=== PATIENT | male | born 1980 | race Two or more races ===

== ENCOUNTER 2020-06-01 11:26 | Outpatient (REF) | payer OTHER, SELFPAY ==
[2020-06-01 13:46] LABS: MANUAL DIFF FLAG NO
[2020-06-01 13:48] LABS: Basophils Absolute Auto 0.1 X10*3/uL (0.0-0.2); Basophils Percent Auto 0.4 % (0-2); Eosinophils Absolute Auto 0.1 X10*3/uL (0.0-0.4); Eosinophils Percent Auto 0.8 % (0-4); Hematocrit 49.9 % (42-52); Hemoglobin 16.5 g/dl (14.0-18.0); Imm Gran Abs Auto 0.04 X10*3/uL (0.00-0.03); Imm Gran Pct Auto 0.3 % (0.0-0.4); Lymphocytes Absolute Auto 3.1 X10*3/uL (1.2-4.9); Lymphocytes Percent Auto 24.7 % (20-40); Mean Corpuscular HGB Conc 33.1 g/dl (31.0-36.0); Mean Corpuscular Hemoglobin 27.4 pg (27.0-33.0); Mean Corpuscular Volume 82.9 fL (80-98); Monocytes Absolute Auto 0.7 X10*3/uL (0.1-1.2); Monocytes Percent Auto 5.5 % (2-11); Neutrophils Absolute Auto 8.6 X10*3/uL (2.0-8.3); Neutrophils Percent Auto 68.3 % (45-73); Platelet Count 464 X10*3/uL (160-400); Red Blood Count 6.02 X10*6/uL (4.60-5.80); Red Cell Distribution Width 13.2 % (11.0-16.0); White Blood Count 12.7 X10*3/uL (4.8-10.8)
[2020-06-01 14:42] LABS: Creatinine Urine 69.88 mg/dL; Microalbum/Creatinine Ratio Ur 55.8 ug/mg cr
[2020-06-01 14:49] LABS: Alanine Aminotransferase 13 U/L (0-40); Albumin Level 4.5 g/dL (3.5-5.0); Alkaline Phosphatase 120 U/L (39-117); Aspartate Amino Transferase 14 U/L (5-37); Blood Urea Nitrogen 16 mg/dL (9-16); Calcium 9.6 mg/dL (8.4-10.2); Cholesterol 246 mg/dL; Estimated Glomerular Filt Rate 49; HDL Cholesterol 34 mg/dL; Total Protein 8.5 g/dL (6.5-8.0); Triglycerides 724 mg/dL
[2020-06-01 14:56] LABS: Prostate Specific Antigen Scr 1.29 ng/mL (<0.05-4.0); TSH reflex Free T4 1.37 mIU/mL (0.32-4.0)
[2020-06-01 14:59] LABS: Anion Gap 22 (12-20); Carbon Dioxide 21 mmol/L (22-29); Chloride 93 mmol/L (96-108); Glucose Fasting 536 mg/dL (60-99); Potassium 5.2 mmol/l (3.3-5.1); Sodium 131 mmol/L (135-145)
== END 2020-06-01 11:27 | disposition home or self-care (01) ==
LOC: HO.WFDLDS 11:26
PROVIDERS: Visit Provider Family Medicine
DX: Z00.00 Encounter for general adult medical examination without abnormal findings (principal); E78.5 Hyperlipidemia, unspecified; I10 Essential (primary) hypertension; R79.89 Other specified abnormal findings of blood chemistry
CPT/HCPCS: 36415; 80053; 80061; 82043; 84153; 84443; 85025

== ENCOUNTER 2020-10-27 18:22 | Outpatient (REF) | payer OTHER, SELFPAY ==
[2020-10-27 18:52] LABS: Creatinine Urine 55.95 mg/dL; Microalbum/Creatinine Ratio Ur 21.4 ug/mg cr
== END 2020-10-27 18:23 | disposition home or self-care (01) ==
LOC: HO.LNP 18:22
PROVIDERS: Visit Provider Family Medicine
DX: E11.9 Type 2 diabetes mellitus without complications (principal); I10 Essential (primary) hypertension
CPT/HCPCS: 82043

== ENCOUNTER 2020-11-02 12:01 | Outpatient (REF) | payer OTHER, SELFPAY ==
[2020-11-02 13:13] LABS: Alanine Aminotransferase 25 U/L (0-40); Albumin Level 4.3 g/dL (3.5-5.0); Alkaline Phosphatase 86 U/L (39-117); Anion Gap 11 (12-20); Aspartate Amino Transferase 18 U/L (5-37); Bilirubin Total 0.8 mg/dL (0.0-1.0); Blood Urea Nitrogen 14 mg/dL (9-16); Carbon Dioxide 28 mmol/L (22-29); Chloride 100 mmol/L (96-108); Estimated Glomerular Filt Rate > 60; Glucose Fasting 321 mg/dL (60-99); Sodium 134 mmol/L (135-145); Total Protein 7.7 g/dL (6.5-8.0)
== END 2020-11-02 12:02 | disposition home or self-care (01) ==
LOC: HO.LAB 12:01
PROVIDERS: PCP Family Medicine; Visit Provider Family Medicine
DX: Z00.00 Encounter for general adult medical examination without abnormal findings (principal); E11.9 Type 2 diabetes mellitus without complications
CPT/HCPCS: 36415; 80053

== ENCOUNTER 2021-06-01 15:05 | Outpatient (REF) | payer OTHER, SELFPAY ==
[2021-06-01 15:46] LABS: Hematocrit 49.9 % (42.0-52.0); Hemoglobin 16.5 g/dl (14.0-18.0); Mean Corpuscular HGB Conc 33.1 g/dl (31.0-36.0); Mean Corpuscular Hemoglobin 27.4 pg (27.0-33.0); Mean Corpuscular Volume 82.9 fL (80.0-98.0); Mean Platelet Volume 9.2 fL (9.4-12.4); Platelet Count 441 X10*3/uL (160-400); Red Blood Count 6.02 X10*6/uL (4.60-5.80); Red Cell Distribution Width 12.7 % (11.0-16.0); White Blood Count 11.6 X10*3/uL (4.8-10.8)
[2021-06-01 15:53] LABS: Estimated Average Glucose 258 mg/dL; Hemoglobin A1c % 10.6 %
[2021-06-01 16:07] LABS: Alanine Aminotransferase 20 U/L (0-40); Albumin Level 4.3 g/dL (3.5-5.0); Alkaline Phosphatase 93 U/L (39-117); Anion Gap 15 (12-20); Aspartate Amino Transferase 14 U/L (5-37); Bilirubin Total 1.1 mg/dL (0.0-1.0); Blood Urea Nitrogen 12 mg/dL (9-16); Calcium 10.3 mg/dL (8.4-10.2); Carbon Dioxide 26 mmol/L (22-29); Chloride 101 mmol/L (96-108); Estimated Glomerular Filt Rate > 60; Glucose Random 375 mg/dL (60-115); Potassium 4.7 mmol/L (3.3-5.1); Sodium 137 mmol/L (135-145); Total Protein 8.1 g/dL (6.5-8.0)
[2021-06-01 16:23] LABS: TSH reflex Free T4 1.18 uIU/mL (0.32-4.0)
== END 2021-06-01 15:06 | disposition home or self-care (01) ==
LOC: HO.LAB 15:05
PROVIDERS: PCP Family Medicine; Visit Provider Hospitalist
DX: Z00.00 Encounter for general adult medical examination without abnormal findings (principal); E11.9 Type 2 diabetes mellitus without complications
CPT/HCPCS: 36415; 80053; 83036; 84443; 85027

== ENCOUNTER 2022-11-20 12:51 | Outpatient (REF) | payer OTHER, SELFPAY ==
[2022-11-20 15:00] LABS: Alanine Aminotransferase 16 U/L (0-40); Alkaline Phosphatase 90 U/L (39-117); Anion Gap 12 (12-20); Aspartate Amino Transferase 15 U/L (5-37); Bilirubin Total 0.7 mg/dL (0.0-1.0); Blood Urea Nitrogen 10 mg/dL (9-16); Calcium 9.5 mg/dL (8.4-10.2); Carbon Dioxide 27 mmol/L (22-29); Chloride 103 mmol/L (96-108); Cholesterol 233 mg/dL; Estimated Glomerular Filt Rate > 60; Glucose Fasting 267 mg/dL (60-99); HDL Cholesterol 41 mg/dL; LDL Cholesterol Calculated 154 mg/dl; Potassium 3.9 mmol/L (3.3-5.1); Sodium 138 mmol/L (135-145); Total Protein 7.8 g/dL (6.5-8.0); Triglycerides 192 mg/dL
== END 2022-11-20 12:52 | disposition home or self-care (01) ==
LOC: HO.LAB 12:51
PROVIDERS: PCP Hospitalist; Visit Provider Hospitalist
DX: Z00.00 Encounter for general adult medical examination without abnormal findings (principal); E66.9 Obesity, unspecified; R89.9 Unspecified abnormal finding in specimens from other organs, systems and tissues
CPT/HCPCS: 36415; 80053; 80061; 84443

== ENCOUNTER 2023-11-07 15:57 | Outpatient (AMB) | payer OTHER, SELFPAY ==
--- NOTE | 2023-11-07 15:59 | A.OFFPC_ITS ---
Vital Signs 11/07/23 16:00 Height 6 ft Weight 237 lb 4 oz BMI 32.2 BP 132/78 Blood Pressure Location Lt brachial Position Sitting Intake Visit Reasons: Reestablish care- needs insulin refilled. Intake Note: Patient is here to re establish care for insulin, and would like to talk about l ab work. Patient would like to talk about polycystic kidney disease because his is and she has traits. Patient is requesting insulin and med refills toaday. Allergies No Known Allergies Allergy (Verified 11/07/23 16:03) Tobacco use date assessed: 09/25/22 Dental Screening Dental Screen Date: 11/07/23 Did you have a dental visit in the last 12 months?: No Did you have a dental problem in the last 6 months where you did not have access to dental care?: No Was dental information given to patient?: Patient has dentist HPI Reestablish care- needs insulin refilled. HPI Details 43 y/o male presents to re-establish car e. Past medical history of diabetes, HLD, HTN. A1c today 11/07/23 10.2%. He is on insulin glargine 50 units, lispro 10 units. Blood pressure today 132/78. He is on lisinopril 10mg daily. [facility] Medical History Diabetes type 2, controlled Hyperlipidemia Left lower quadrant abdominal tenderness Renal failure Surgical History No pertinent past surgical history Family History Mother No problems noted. Father No problems noted. Social History Housing: Apartment Alcohol intake: current Alcohol intake frequency: holidays/special occasions only Patient Tobacco Use Status: Never used Tobacco e-Cigarette/Vaping Use: Never Used Second Hand Smoke Exposure: No Current occupational status: unemployed Cognitive needs: No Hearing needs: No Vision needs: No Questionnaire PHQ-9 Over the last 2 weeks, how often have you been bothered by any of the following problems? 1. Little interest or pleasure in doing things: not at all 2. Feeling down, depressed, or hopeless: not at all 3. Trouble falling or staying asleep, or sleeping too much: not at all 4. Feeling tired or having little energy: not at all 5. Poor appetite or overeating: not at all 6. Feeling bad about yourself - or that you are a failure or have let yourself or your family down: not at all 7. Trouble concentrating on things, such as reading the newspaper or watching television: not at all 8. Moving or speaking so slowly that other people could have noticed. Or the opposite - being so fidgety or restless that you have been moving around a lot more than usual: not at all 9. Thoughts that you would be better off or of hurting yourself in some way: not at all Total score: 0 Depression Screening Interpretation: Negative Depression Screening Done: Yes Source: Developed by Drs. Rafi Arcos, Whit Foley, Julián Hart and colleagues, with an educational saqib from [employer]. Thrive Questionnaire Date Thrive assessed: 11/07/23 I am a: Patient What is your living situation today?: I have a steady place to live Within the past 12 months, did the food you bought not last and you didn't have the money to get more?: Never true Within the past 12 months, did you worry whether your food would run out before you got money to buy more?: Never true Do you have trouble paying for medicines?: No Do you have trouble getting transportation to medical appointments?: No Do you have trouble paying your heating and electricity bill?: No Do you have trouble taking care of your child, family member or friend?: No Do you have trouble with day-to-day activities such as bathing, preparing meals, shopping, managing finances, etc.?: No Are you currently unemployed and looking for a job?: No Are you interested in more education?: No THRIVE Score: 0 AUDIT C Alcohol Use Questionnaire (AUDIT-C) 1. How often do you have a drink containing alcohol?: Monthly or less 2. How many drinks containing alcohol do you have on a typical day when you are drinking?: 1 or 2 3. How often do you have six or more drinks on one occasion?: Never Total Score: 1 MYESHA-7 AMB Questionnaire MYESHA-7 Date MYESHA - 7 assessed: 11/07/23 Feeling nervous, anxious, or on edge: 0 = Not at all Not being able to stop or control worryin = Not at all Worrying too much about different things: 0 = Not at all Trouble relaxin = Not at all Being so restless that it is hard to sit still: 0 = Not at all Becoming easily annoyed or irritable: 0 = Not at all Feeling afraid as if something awful might happen: 0 = Not at all Total MYESHA-7 score (0-4 normal; 5-9 mild; 10-14 moderate; 15-21 severe): 0 Source: Developed by Drs. Rafi Arcos, Whit Foley, Julián Hart and colleagues, with an educational saqib from [employer]. Review of Systems Const Denies chills, Denies fatigue, Denies fever(s), Denies headache(s) and Denies weakness ENT Denies dizziness and Denies headache(s) Card Denies dyspnea Resp Denies cough, Denies dyspnea, Denies wheezing and Denies other (shortness of breath) Musc Denies numbness and Denies tingling Neuro Denies dizziness, Denies headache(s), Denies numbness, Denies tingling and Denies weakness Psych Denies anxiety and Denies depression Endo Denies fatigue Aller/Immun Denies wheezing Physical exam (Primary Care) Vital Signs: Last Vital Signs BP 132/78 11/07/23 16:00 BMI result Body Mass Index 32.2 Tobacco/Smoking Status: Tobacco use Status Tobacco use date assessed 09/25/22 11/07/23 16:07 Patient Tobacco Use Status Never used Tobacco 11/07/23 16:07 e-Cigarette/Vaping Use Never Used 11/07/23 16:07 PHQ-9: PHQ-9 Score PHQ-9: Total score 0 11/07/23 16:25 Depression Screening Interpretation: Negative Thrive Assessment: Date of Thrive Assessment Date Thrive assessed 11/07/23 11/07/23 16:17 Const General: well developed; No acute distress Nutritional Appearance: well nourished Orientation/consciousness: patient oriented x3 HENMT Head: Yes normocephalic and Yes atraumatic Eyes General: appearance normal, both eyes and all related structures Pupils: Equal, round and reactive pupils present EOM: EOMs intact bilaterally Resp Effort & Inspection: normal respiratory effort Neuro General: patient oriented x3 and gait normal Cranial nerves: Yes Equal, round and reactive pupils present Psych Affect: normal affect Results AMB Hemoglobin A1c AMB Hemoglobin A1c 10.2 % Last Edit by Adore Kat CMA on 11/07/23 16:35 Assessment and Plan Assessment & Plan (1) Uncontrolled diabetes mellitus with hyperglycemia: Code(s): E11.65 - Type 2 diabetes mellitus with hyperglycemia (2) Essential hypertension: Code(s): I10 - Essential (primary) hypertension (3) Diabetes type 2, controlled: Code(s): E11.9 - Type 2 diabetes mellitus without complications Plan: Uncontrolled?diabetes.??A1c?goal?is?less?than?7.0% Changing?Lantus?to?35?units?b.i.d. He?is?unable?to?take?Humalog?at?breakfast?time?and?lunchtime?due?to?work. Will?give?him?glipizide?ER 10?mg?in?the?morning?and?encouraged?him?to?make?sure?he?has?something?to?eat?at? each?meal He?can?use?his?he?will?log?in?the?evening?before?dinner Will?follow-up?in?1?month Plan Patient's??has?polycystic?trait?according?to?her?provider?at?[facility]?a nd?they?recommended?that?he?also?get?testing?as?his??is?currently?. Starting?with?an?ultrasound Orders: Orders US renal BI Today E11.9 - Type 2 diabetes mellitus without complications, I10 - Essential (primary) hypertension AMB Hemoglobin A1c Today Z13.9 - Encounter for screening, unspecified Medications: New glipizide ER 10 mg PO QAM 90 days 90 tabs 2RF Changed From insulin glargine (Lantus Solostar U-100 Insulin) 50 units (0.5 mL) subcut DAILY 3 months 45 mL 3RF E11.9 - Type 2 diabetes mellitus without complications To insulin glargine (Lantus Solostar U-100 Insulin) 35 units (0.35 mL) subcut BID 3 months 63 mL 3RF E11.9 - Type 2 diabetes mellitus without complications Coding Level of Care Code Est Pt Level 4 (19320) Diagnoses Uncontrolled diabetes mellitus with hyperglycemia E11.65 Essential hypertension I10 Diabetes type 2, controlled E11.9
[2023-11-07 16:00] VITALS: BP 132/78; BMI 32.2
== END 2023-11-07 16:30 | disposition home or self-care (01) ==
PROVIDERS: PCP Family Medicine; Visit Provider Family Medicine
DX: E11.65 Type 2 diabetes mellitus with hyperglycemia (principal); I10 Essential (primary) hypertension
CPT/HCPCS: 83036; 99214

== ENCOUNTER 2024-01-03 08:06 | Outpatient (REF) | payer OTHER, SELFPAY ==
--- NOTE | ~2024-01-03 | US_ITS ---
EXAMINATION: ULTRASOUND RENAL WITH DOPPLER CLINICAL INFORMATION: Hypertension COMPARISON: None. TECHNIQUE: Real-time grayscale, color Doppler, and duplex Doppler evaluation of the kidneys and renal vasculature was performed. FINDINGS: RENAL MEASUREMENTS: Right: 13.9 x 6.2 x 5.5 cm (Sag x AP x TV) Left: 12.3 x 6.0 x 5.5 cm (Sag x AP x TV) The renal parenchyma appears normal. No hydronephrosis or nephrolithiasis. DOPPLER INTERROGATION: AORTA: Mid aorta: 117 cm/sec RIGHT MAIN RENAL ARTERY: Proximal: 155 cm/sec Mid: 75 cm/sec Distal: 110 cm/sec LEFT MAIN RENAL ARTERY: Proximal: 153 cm/sec Mid: 353 cm/sec Distal: 142 cm/sec RENAL-AORTIC RATIO (RAR): Right: Not calculated due to mid aortic velocity outside of range 40-100 cm/s making RAR inaccurate. Left: Not calculated due to mid aortic velocity outside of range 40-100 cm/s making RAR inaccurate. SEGMENTAL RESISTIVE INDICES: Right: 0.66-0.71 Left: 0.61-0.68 RENAL VEINS: Right: Patent with normal waveform. Left: Patent with normal waveform. US/US renal BI IMPRESSION: Elevated velocity in the mid left renal artery concerning for an underlying hemodynamically significant stenosis. Recommend further evaluation with CTA or MRA of the abdomen without and with intravenous contrast.
--- NOTE | ~2024-01-03 | US_ITS ---
EXAMINATION: ULTRASOUND RENAL WITH DOPPLER CLINICAL INFORMATION: Hypertension COMPARISON: None. TECHNIQUE: Real-time grayscale, color Doppler, and duplex Doppler evaluation of the kidneys and renal vasculature was performed. FINDINGS: RENAL MEASUREMENTS: Right: 13.9 x 6.2 x 5.5 cm (Sag x AP x TV) Left: 12.3 x 6.0 x 5.5 cm (Sag x AP x TV) The renal parenchyma appears normal. No hydronephrosis or nephrolithiasis. DOPPLER INTERROGATION: AORTA: Mid aorta: 117 cm/sec RIGHT MAIN RENAL ARTERY: Proximal: 155 cm/sec Mid: 75 cm/sec Distal: 110 cm/sec LEFT MAIN RENAL ARTERY: Proximal: 153 cm/sec Mid: 353 cm/sec Distal: 142 cm/sec RENAL-AORTIC RATIO (RAR): Right: Not calculated due to mid aortic velocity outside of range 40-100 cm/s making RAR inaccurate. Left: Not calculated due to mid aortic velocity outside of range 40-100 cm/s making RAR inaccurate. SEGMENTAL RESISTIVE INDICES: Right: 0.66-0.71 Left: 0.61-0.68 RENAL VEINS: Right: Patent with normal waveform. Left: Patent with normal waveform. US/US renal doppler IMPRESSION: Elevated velocity in the mid left renal artery concerning for an underlying hemodynamically significant stenosis. Recommend further evaluation with CTA or MRA of the abdomen without and with intravenous contrast.
== END 2024-01-03 08:07 | disposition home or self-care (01) ==
LOC: HO.US 08:06
PROVIDERS: PCP Family Medicine; Visit Provider Family Medicine
DX: I10 Essential (primary) hypertension (principal); E11.65 Type 2 diabetes mellitus with hyperglycemia
CPT/HCPCS: 76775; 93975

== ENCOUNTER 2024-02-25 14:51 | Outpatient (AMB) | payer OTHER, SELFPAY ==
[2024-02-25 14:46] VITALS: BP 136/62; PULSE 101; O2SAT 97; BMI 32.5
--- NOTE | 2024-02-25 14:46 | HO.NEPHOV ---
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 Accompanied by: Daughter Allergies No Known Allergies Allergy (Verified 02/25/24 14:53) Medication List - Last Reconciled 02/25/24 by Floyd Tang MD aspirin 81 mg PO DAILY blood sugar diagnostic (FreeStyle Lite Strips) DX: E11.9, test blood sugar 3 times a day AND PRN blood-glucose meter (FreeStyle Lite Meter kit) DX: E11.9, test blood sugar 4 times a day, duration 999 days insulin glargine (Lantus Solostar U-100 Insulin) 35 units (0.35 mL) subcut BID 3 months insulin lispro (Humalog KwikPen (U-100) Insulin) 10 units (0.1 mL) subcut TID 3 months insulin syringe-needle U-100 As directed lancets (FreeStyle Lancets) As directed lisinopril 10 mg PO DAILY pen needle, diabetic (BD Ultra-Fine Mini Pen Needle) DX: E11.9, to treat blood sugar 5 times a day, 90 days HPI Comments Details: Zakia is a pleasant 41-year-old man who has a history of hypertension and diabetes mellitus. He has been on lisinopril 10 mg for more than 5 years. He does not take lisinopril on a regular basis. During a routine evaluation he underwent a renal ultrasonogram/Doppler of renal arteries. Report was read as mild increase in velocity in the renal arteries and possible renal artery stenosis. However overall blood pressure has been well controlled. No significant elevation in blood pressure. In spite of skipping his lisinopril blood pressure has been in the acceptable range. He has no history of dyslipidemia. No history of smoking. No family history of arthrosclerosis. He has no other predisposing factors besides diabetes mellitus. Has a history of snoring at night. He has not undergone any sleep evaluation. His BMI is elevated at 32. He has lost about 10 lb based on the weight is recorded in the chart. [facility] Medical History Diabetes type 2, controlled Hyperlipidemia Left lower quadrant abdominal tenderness Renal failure Surgical History No pertinent past surgical history Family History Mother No problems noted. Father No problems noted. Social History Housing: Apartment Alcohol intake: current Alcohol intake frequency: holidays/special occasions only Patient Tobacco Use Status: Never used Tobacco e-Cigarette/Vaping Use: Never Used Second Hand Smoke Exposure: No Current occupational status: unemployed Cognitive needs: No Hearing needs: No Vision needs: No Review of Systems Const Denies fever(s) Card Denies chest pain Resp Denies cough and Denies hemoptysis GI Denies abdominal pain, Denies diarrhea and Denies nausea Musc Denies back pain Neuro Denies focal weakness Physical Exam Vital Signs: Last Vital Signs Pulse 101 H 02/25/24 14:46 BP 136/62 02/25/24 14:46 Pulse Ox 97 02/25/24 14:46 Oxygen Delivery Method Room Air 02/25/24 14:46 BMI result Body Mass Index 32.5 Results Reviewed Nephrology Results: Hgb 16.5 g/dl (14.0-18.0) 06/01/21 WBC 11.6 X10*3/uL (4.8-10.8) H 06/01/21 Plt Count 441 X10*3/uL (160-400) H 06/01/21 Sodium 138 mmol/L (135-145) 11/20/22 Potassium 3.9 mmol/L (3.3-5.1) 11/20/22 Chloride 103 mmol/L (96-108) 11/20/22 Carbon Dioxide 27 mmol/L (22-29) 11/20/22 BUN 10 mg/dL (9-16) 11/20/22 Creatinine 0.98 mg/dL (0.5-1.4) 11/20/22 Calcium 9.5 mg/dL (8.4-10.2) 11/20/22 Renal US 01/03/24 Assessment & Plan Assessment & Plan (1) Diabetes type 2, controlled: Code(s): E11.9 - Type 2 diabetes mellitus without complications Category: Medical (2) Essential hypertension: Code(s): I10 - Essential (primary) hypertension Category: Medical Plan Jacob has mild hypertension which seems to be well controlled. Obesity and possible obstructive sleep apnea could be a contributing factor. I do not believe he has significant renal artery stenosis. My recommendation would be to stay on low-sodium diet. I have discussed importance of weight loss. Should undergo a sleep evaluation for possible obstructive sleep apnea and and this needs to be corrected if it is present. For now I have encouraged him to stay on lisinopril. We will monitor blood pressure periodically and adjust the dose as needed. The blood pressure difficult to control or if there is any change renal function then I will consider with further workup I have reassured him and we will be happy to follow him along with you. Orders: Orders Complete Blood Count Auto Diff Today E11.9 - Type 2 diabetes mellitus without complications, I10 - Essential (primary) hypertension Comprehensive Met. Panel Today E11.9 - Type 2 diabetes mellitus without complications, I10 - Essential (primary) hypertension UA and rflx microscopic Today E11.9 - Type 2 diabetes mellitus without complications, I10 - Essential (primary) hypertension Total Protein Urine Random Today E11.9 - Type 2 diabetes mellitus without complications, I10 - Essential (primary) hypertension Referrals Sleep Medicine Referral I10 - Essential (primary) hypertension Coding Level of Care Code New Pt Level 4 (81128) Diagnoses Diabetes type 2, controlled E11.9 Essential hypertension I10
== END 2024-02-25 15:14 | disposition home or self-care (01) ==
PROVIDERS: PCP Family Medicine; Visit Provider Internal Medicine Hypertension Specialist
DX: E11.9 Type 2 diabetes mellitus without complications (principal); I10 Essential (primary) hypertension
CPT/HCPCS: 99204

== ENCOUNTER → 2024-02-25 14:51 | Outpatient (BNVA) | payer OTHER, SELFPAY | PROVIDERS: PCP Family Medicine; Visit Provider Internal Medicine Hypertension Specialist | DX: E11.9 Type 2 diabetes mellitus without complications (principal); I10 Essential (primary) hypertension | CPT/HCPCS: 99202 ==

== ENCOUNTER 2024-04-29 10:25 | Outpatient (REF) | payer OTHER, SELFPAY ==
[2024-04-29 10:55] LABS: MANUAL DIFF FLAG NO
[2024-04-29 11:17] LABS: Basophils Absolute Auto 0.1 X10*3/uL (0.0-0.2); Basophils Percent Auto 0.5 % (0-2); Eosinophils Absolute Auto 0.2 X10*3/uL (0.0-0.4); Eosinophils Percent Auto 1.6 % (0-4); Hematocrit 44.8 % (42.0-52.0); Hemoglobin 15.2 g/dl (14.0-18.0); Imm Gran Abs Auto 0.04 X10*3/uL (0.00-0.03); Imm Gran Pct Auto 0.4 % (0.0-0.4); Lymphocytes Absolute Auto 3.4 X10*3/uL (1.2-4.9); Lymphocytes Percent Auto 36.5 % (20-40); Mean Corpuscular HGB Conc 33.9 g/dl (31.0-36.0); Mean Corpuscular Volume 82.5 fL (80.0-98.0); Mean Platelet Volume 8.9 fL (9.4-12.4); Monocytes Absolute Auto 0.7 X10*3/uL (0.1-1.2); Monocytes Percent Auto 8.1 % (2-11); Neutrophils Absolute Auto 4.9 x10*3/uL (2.0-8.3); Neutrophils Percent Auto 52.9 % (45-73); Platelet Count 390 X10*3/uL (160-400); Red Blood Count 5.43 X10*6/uL (4.60-5.80); Red Cell Distribution Width 12.6 % (11.0-16.0); White Blood Count 9.2 X10*3/uL (4.8-10.8)
[2024-04-29 12:02] LABS: Alanine Aminotransferase 20 U/L (0-40); Albumin Level 3.9 g/dL (3.5-5.0); Alkaline Phosphatase 101 U/L (39-117); Anion Gap 10 (12-20); Aspartate Amino Transferase 19 U/L (5-37); Bilirubin Total 0.6 mg/dL (0.0-1.0); Blood Urea Nitrogen 10 mg/dL (9-16); Calcium 9.6 mg/dL (8.4-10.2); Carbon Dioxide 29 mmol/L (22-29); Chloride 102 mmol/L (96-108); Estimated Glomerular Filt Rate > 60; Glucose Random 141 mg/dL (60-115); Sodium 137 mmol/L (135-145); Total Protein 7.4 g/dL (6.5-8.0)
== END 2024-04-29 10:26 | disposition home or self-care (01) ==
LOC: HO.LAB 10:25
PROVIDERS: PCP Family Medicine; Visit Provider Internal Medicine Hypertension Specialist
DX: E11.9 Type 2 diabetes mellitus without complications (principal); I10 Essential (primary) hypertension
CPT/HCPCS: 36415; 80053; 85025

== ENCOUNTER 2024-06-15 09:29 | Outpatient (REF) | payer OTHER, SELFPAY ==
--- NOTE | ~2024-06-15 | XR_ITS ---
EXAMINATION: XR ANKLE 3 OR MORE VIEWS RIGHT HISTORY: S93.401A - Sprain of unspecified ligament of right ankle, initial encounter COMPARISON: There are no prior studies available for comparison. FINDINGS: Three views of the right ankle are submitted. Osseous mineralization is normal. There is no fracture or dislocation. Ankle mortise is maintained. 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 There is diffuse soft tissue swelling. XR/XR ankle RT min 3V IMPRESSION: 1. Diffuse soft tissue swelling. No evidence of fracture of the right ankle. 2. Severe degenerative change of the tarsometatarsal joints. Electronically signed by: Rafi Berger MD 06/17/2024 03:39 PM EST
== END 2024-06-15 09:30 | disposition home or self-care (01) ==
LOC: HO.HMGCX 09:29
PROVIDERS: PCP Family Medicine; Visit Provider Internal Medicine
DX: S93.401A Sprain of unspecified ligament of right ankle, initial encounter (principal); L03.115 Cellulitis of right lower limb
CPT/HCPCS: 73610; 99212

== ENCOUNTER 2024-06-15 09:29 | Outpatient (AMB) | payer OTHER, SELFPAY ==
--- NOTE | 2024-06-15 10:02 | MHC.OFFWIV ---
Intake Vital Signs 06/15/24 10:05 Weight 248 lb BP 128/80 Blood Pressure Location Rt brachial Position Sitting Pulse 78 Pulse Source Pulse Oximeter Pulse Oximetry (%) 98 Oxygen Delivery Method Room Air Intake Visit Reasons: EP-rt foot swollen Intake Note: Patient here for right foot swelling that has been present for about 1 month. He states he did trip over something a while back but no other known injuries. Patient Tobacco Use Status: Never used Tobacco Allergies No Known Allergies Allergy (Verified 06/15/24 11:02) Medication List - Last Reconciled 06/15/24 by Adan Allred MD aspirin 81 mg PO DAILY blood sugar diagnostic (FreeStyle Lite Strips) DX: E11.9, test blood sugar 3 times a day AND PRN blood-glucose meter (FreeStyle Lite Meter kit) DX: E11.9, test blood sugar 4 times a day, duration 999 days insulin glargine (Lantus Solostar U-100 Insulin) 35 units (0.35 mL) subcut BID 3 months insulin lispro (Humalog KwikPen (U-100) Insulin) 10 units (0.1 mL) subcut TID 3 months insulin syringe-needle U-100 As directed lancets (FreeStyle Lancets) As directed lisinopril 10 mg PO DAILY pen needle, diabetic (BD Ultra-Fine Mini Pen Needle) DX: E11.9, to treat blood sugar 5 times a day, 90 days Do you need a note to return to daycare/school/sports/work: Yes HPI EP-rt foot swollen HPI Details 43-year-old male presents to the office for a sick visit. Patient is complaining of swelling in the right foot for many months. He had scheduled an appointment to see his primary care provider but for unexpected reasons the appointment was canceled. The swelling is more distinct around the ankle and the heredia. He has no sensation on the sole part of his right foot. Patient is diabetic with very poor control of sugars. [facility] Medical History (Updated 06/15/24 @ 11:06 by Adan Allred MD) Cellulitis of right foot Renal failure Left lower quadrant abdominal tenderness Hyperlipidemia Diabetes type 2, controlled Surgical History No pertinent past surgical history Family History Mother No problems noted. Father No problems noted. Social History Housing: Apartment Alcohol intake: current Alcohol intake frequency: holidays/special occasions only Patient Tobacco Use Status: Never used Tobacco e-Cigarette/Vaping Use: Never Used Second Hand Smoke Exposure: No Current occupational status: unemployed Cognitive needs: No Hearing needs: No Vision needs: No Physical Exam Vital Signs: Last Vital Signs Pulse 78 06/15/24 10:05 BP 128/80 06/15/24 10:05 Pulse Ox 98 06/15/24 10:05 Oxygen Delivery Method Room Air 06/15/24 10:05 Extrem Other: Right foot: Swollen compared to the left foot. Pitting edema over the heredia up to the knee. No vascular or venous markings. Erythema over the dorsum of the foot. Assessment & Plan Assessment & Plan (1) Cellulitis of right foot: Code(s): L03.115 - Cellulitis of right lower limb Plan: X-ray images were personally reviewed by me. Antibiotics called in. Anti-inflammatories called in. Patient was advised to get his blood sugars under control and follow-up with his PCP. An e-mail was sent to the employment security officer requesting an early appointment with PCP. Orders: Orders XR ankle RT min 3V Today S93.401A - Sprain of unspecified ligament of right ankle, initial encounter Coding Level of Care Code Est Pt Level 4 (68964) Diagnoses Cellulitis of right foot L03.115
[2024-06-15 10:05] VITALS: BP 128/80; PULSE 78; O2SAT 98
== END 2024-06-15 11:32 | disposition home or self-care (01) ==
PROVIDERS: PCP Family Medicine; Visit Provider Internal Medicine
DX: L03.115 Cellulitis of right lower limb (principal)

== ENCOUNTER → 2024-06-15 10:45 | Outpatient (BNV) | payer OTHER, SELFPAY | PROVIDERS: PCP Family Medicine; Visit Provider Radiology Diagnostic Radiology | DX: M19.071 Primary osteoarthritis, right ankle and foot (principal) | CPT/HCPCS: 73610 ==

== ENCOUNTER 2024-06-22 13:45 | Outpatient (AMB) | payer OTHER, SELFPAY ==
--- NOTE | 2024-06-22 13:53 | MHC.PC.OV ---
Vital Signs 06/22/24 13:58 Height 6 ft Weight 250 lb 8 oz BMI 34.0 BP 147/71 H Blood Pressure Location Rt brachial Position Sitting Respiration 16 Pulse 99 Pulse Source Pulse Oximeter Temp 98.5 F Temp Source Oral Pulse Oximetry (%) 97 Oxygen Delivery Method Room Air Intake Visit Reasons: right foot issues needs ultrasound per dr proctor Intake Note: patient here c/o right foot issues would like an ultrasound Sales Communications Manager Required: No Allergies No Known Allergies Allergy (Verified 06/22/24 13:55) Tobacco use date assessed: 06/22/24 Dental Screening Dental Screen Date: 06/22/24 Did you have a dental visit in the last 12 months?: No Did you have a dental problem in the last 6 months where you did not have access to dental care?: No Was dental information given to patient?: No HPI right foot issues needs ultrasound per dr proctor HPI Details 43 y/o male presents to f/u R foot cellulitis. Had seen the walk in clinic 06/15/24 - xray had shown swelling R foot compared to L foot. Hx of uncontrolled diabetes and A1c today 10.1%. 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 Cellulitis of R foot seems to be improving. [facility] Medical History (Updated 06/22/24 @ 14:37 by Orville Reeder MD) Cellulitis of right foot Renal failure Left lower quadrant abdominal tenderness Hyperlipidemia Diabetes type 2, controlled Surgical History No pertinent past surgical history Family History Mother No problems noted. Father No problems noted. Social History Housing: Apartment Alcohol intake: current Alcohol intake frequency: holidays/special occasions only Patient Tobacco Use Status: Never used Tobacco e-Cigarette/Vaping Use: Never Used Second Hand Smoke Exposure: No Current occupational status: unemployed Cognitive needs: No Hearing needs: No Vision needs: No Questionnaire Thrive Questionnaire Date Thrive assessed: 06/21/24 I am a: Patient What is your living situation today?: I choose not to answer this question Within the past 12 months, did the food you bought not last and you didn't have the money to get more?: I choose not to answer this question Within the past 12 months, did you worry whether your food would run out before you got money to buy more?: I choose not to answer this question Do you have trouble paying for medicines?: No Do you have trouble getting transportation to medical appointments?: I choose not to answer this question Do you have trouble paying your heating and electricity bill?: I choose not to answer this question Do you have trouble taking care of your child, family member or friend?: I choose not to answer this question Do you have trouble with day-to-day activities such as bathing, preparing meals, shopping, managing finances, etc.?: I choose not to answer this question Are you currently unemployed and looking for a job?: I choose not to answer this question Are you interested in more education?: I choose not to answer this question Please select the resources that you would like help with: None Currently or been in a relationship where the following occur: I choose not to answer THRIVE Score: 0 AUDIT C Alcohol Use Questionnaire (AUDIT-C) 1. How often do you have a drink containing alcohol?: Never 2. How many drinks containing alcohol do you have on a typical day when you are drinking?: 1 or 2 3. How often do you have six or more drinks on one occasion?: Never Total Score: 0 MYESHA-7 AMB Questionnaire MYESHA-7 Date MYESHA - 7 assessed: 11/07/23 Feeling nervous, anxious, or on edge: 0 = Not at all Not being able to stop or control worryin = Not at all Worrying too much about different things: 0 = Not at all Trouble relaxin = Not at all Being so restless that it is hard to sit still: 0 = Not at all Becoming easily annoyed or irritable: 0 = Not at all Feeling afraid as if something awful might happen: 0 = Not at all Total MYESHA-7 score (0-4 normal; 5-9 mild; 10-14 moderate; 15-21 severe): 0 Source: Developed by Drs. Rafi Arcos, Whit Foley, Julián Hatr and colleagues, with an educational saqib from [employer]. Review of Systems Const Denies chills, Denies fatigue, Denies fever(s), Denies headache(s) and Denies weakness ENT Denies dizziness and Denies headache(s) Card Denies dyspnea Resp Denies cough, Denies dyspnea, Denies wheezing and Denies other (shortness of breath) Musc Denies numbness and Denies tingling Neuro Denies dizziness, Denies headache(s), Denies numbness, Denies tingling and Denies weakness Psych Denies anxiety and Denies depression Endo Denies fatigue Aller/Immun Denies wheezing Physical exam (Primary Care) Vital Signs: Last Vital Signs Temp 98.5 F 06/22/24 13:58 Pulse 99 06/22/24 13:58 Resp 16 06/22/24 13:58 BP 147/71 H 06/22/24 13:58 Pulse Ox 97 06/22/24 13:58 Oxygen Delivery Method Room Air 06/22/24 13:58 BMI result Body Mass Index 34.0 Tobacco/Smoking Status: Tobacco use Status Tobacco use date assessed 06/22/24 06/22/24 14:01 Patient Tobacco Use Status Never used Tobacco 06/22/24 13:54 e-Cigarette/Vaping Use Never Used 06/22/24 13:54 Thrive Assessment: Date of Thrive Assessment Date Thrive assessed 06/21/24 06/22/24 13:54 Currently or been in a relationship where the following occur: I choose not to answer Const General: well developed; No acute distress Nutritional Appearance: well nourished Orientation/consciousness: patient oriented x3 [facility] Head: Yes normocephalic and Yes atraumatic Eyes General: appearance normal, both eyes and all related structures Pupils: Equal, round and reactive pupils present EOM: EOMs intact bilaterally Resp Effort & Inspection: normal respiratory effort Auscultation: clear to auscultation bilaterally Cardio Rate: regular rate Rhythm: regular rhythm Heart sounds: S1 normal heart sound present, S2 normal heart sound present, no gallops, no murmurs and no rubs Neuro General: patient oriented x3 and gait normal Cranial nerves: Yes Equal, round and reactive pupils present Psych Affect: normal affect Coding Level of Care Code Est Pt Level 4 (05472) Diagnoses Cellulitis of right foot L03.115 Uncontrolled diabetes mellitus with hyperglycemia E11.65 Assessment & Plan Assessment & Plan (1) Cellulitis of right foot: Code(s): L03.115 - Cellulitis of right lower limb Category: Medical Plan: Cellulitis?of?right?foot?which?appears?to?be?improving?but?may?not?be?fully?resolved. Will?continue?Bactrim?for?another?7?days We?discussed?that?lower?extremity?and?especially?foot?infections?are?most?common?with?uncontrolled?diabetes - needs?to?work?at?control?of?his?diabetes.??See?below Refer?to?Podiatry (2) Uncontrolled diabetes mellitus with hyperglycemia: Code(s): E11.65 - Type 2 diabetes mellitus with hyperglycemia Category: Medical Plan: A1c?10.1%.??Still?uncontrolled?diabetes.??Goal?is?less?than?7% Patient?has?declined?referral?to?endocrinology Will?have?him?increase?Lantus?slightly?but?change?his?prescriptions?to?30?day?rather?than?90?days?at?his?request Will?try?Mounjaro Continue?prandial?insulin?as?prescribed Will?try?to?get?patient?a?Ariana?system?and?ask?the?nurse?navigator?to?performed?teaching. Orders: Referrals Podiatry Referral E11.9 - Type 2 diabetes mellitus without complications, L03.115 - Cellulitis of right lower limb, M21.40 - Flat foot [pes planus] (acquired), unspecified foot Nurse Navigator Referral E11.65 - Type 2 diabetes mellitus with hyperglycemia Medications: New flash glucose sensor ([employer] Ariaan 2 Sensor kit) To continuosly monitor glucose, change every 14 days, As directed, 28 days 2 ea 0RF E11.65 - Type 2 diabetes mellitus with hyperglycemia tirzepatide (Mounjaro) for 4 weeks 2.5 mg (0.5 mL) subcut QWEEK 90 days 6.5 mL 2RF flash glucose scanning reader ([employer] Ariana 2 Ernul) To continuosly monitor glucose, As directed, 999 days 1 ea 2RF E11.65 - Type 2 diabetes mellitus with hyperglycemia Changed From sulfamethoxazole-trimethoprim 800-160 mg (Bactrim DS) 1 tab PO BID 5 days 10 tabs 0RF To sulfamethoxazole-trimethoprim 800-160 mg (Bactrim DS) 1 tab PO BID 7 days 14 tabs 0RF From lisinopril 10 mg PO DAILY 90 tabs 3RF To lisinopril 20 mg PO DAILY 90 days 90 tabs 3RF From insulin glargine (Lantus Solostar U-100 Insulin) 35 units (0.35 mL) subcut BID 3 months 63 mL 3RF E11.9 - Type 2 diabetes mellitus without complications To insulin glargine (Lantus Solostar U-100 Insulin) 38 units (0.38 mL) subcut BID 30 days 24 mL 3RF E11.9 - Type 2 diabetes mellitus without complications
[2024-06-22 13:58] VITALS: BP 147/71; PULSE 99; RESP 16; TEMP 36.9; O2SAT 97; BMI 34.0
== END 2024-06-22 14:36 | disposition home or self-care (01) ==
PROVIDERS: PCP Family Medicine; Visit Provider Family Medicine
DX: L03.115 Cellulitis of right lower limb (principal); E11.65 Type 2 diabetes mellitus with hyperglycemia

== ENCOUNTER → 2024-06-22 13:45 | Outpatient (BNVA) | payer OTHER, SELFPAY | PROVIDERS: PCP Family Medicine; Visit Provider Family Medicine | DX: L03.115 Cellulitis of right lower limb (principal); E11.65 Type 2 diabetes mellitus with hyperglycemia | CPT/HCPCS: 99212 ==

== ENCOUNTER 2024-07-24 14:48 | Outpatient (AMB) | payer OTHER, SELFPAY ==
--- OUTSIDE RECORDS SUMMARY | 2024-07-24 14:49 | XMS_ITS | Clinical Summary ---
Author Organization [facility] Address [address] [place] [address] Phone Care Team Providers Care Prefabricated Houses Trimmer Name Role Phone Orville Reeder MD Primary Care Provider [phone] Allergies No known active allergies Medications insulin glargine (LANTUS) 100 unit/mL injection Inject 40 Units under the skin 2 (two) times a day. Active Medical History Medical History Date Comments Diabetes mellitus (CMS/[facility]) Hypertension Social History Tobacco Use Types Packs/Day Years Used Date Smoking Tobacco: Never Tobacco Cessation:Counseling Given: Not Answered Sex and Gender Information Value Date Recorded Sex Assigned at Not on file Legal Sex Male 10:16 AM EST Gender Identity Not on file Sexual Orientation Not on file Obstetrics History Last Filed Vital Signs Vital Sign Reading Time Taken Comments Blood Pressure 139/80 04/12/2024 10:41 AM EST Pulse 99 04/12/2024 10:41 AM EST Temperature 36.8 ??C (98.2 ??F) 04/12/2024 10:[address] Respiratory Rate 16 04/12/2024 10:41 AM EST Oxygen Saturation 100% 04/12/2024 10:41 AM EST Inhaled Oxygen Concentration - - Weight 109 kg (240 lb) 04/12/2024 10:41 AM EST Height 182.9 cm (6') 04/12/2024 10:41 AM EST Body Mass Index 32.55 04/12/2024 10:41 AM EST Plan of Treatment Health Maintenance Due Date Last Done Comments Diabetes: Annual GFR (Glomer ular Filtration Rate) 1978 Diabetes: Annual Foot Exam 1988 Diabetes: Annual Retina Eye Exam 1988 Hepatitis B Vaccines (1 of 3 - 19+ 3-dose series) 1997 DTaP,Tdap,and Td Vaccines (2 - Td or Tdap) 03/07/2020 03/07/2010 COVID-19 Vaccine (1 - 2023-2 5 season) 2024 Influenza Vaccine (#1) 2024 03/01/2011 Cholesterol Screening (Lipid Panel) 04/12/2024 Colorectal Cancer Screening: Colonoscopy 04/12/2024 Depression Screening 04/12/2024 Diabetes: Annual Urine Albumin-Creatinine Ratio (uACR) 04/12/2024 Diabetes: Blood Sugar Contro l Test (HGBA1C) 04/12/2024 HIV Screening 04/12/2024 Hepatitis C Screening 04/12/2024 Hypertension/CHF/CAD Annual BMP Blood Test 04/12/2024 Social Influencers of Health Screening 04/12/2024 Pneumococcal Vaccine: Pediat rics (0 to 5 Years) and At-Risk Patients (6 to 64 Years) Aged Out 03/07/2010 No longer eligi ble based on patient's age to complete this topic HIB Vaccines Aged Out No longer eligi ble based on patient's age to complete this topic HPV Vaccines Aged Out No longer eligi ble based on patient's age to complete this topic Hepatitis A Vaccines Aged Out No long er eligible based on patient's age to complete this topic IPV Vaccines Aged Out No longer eligi ble based on patient's age to complete this topic MMR Vaccines Aged Out No longer eligi ble based on patient's age to complete this topic Meningococcal ACWY Vaccine Aged Out N o longer eligible based on patient's age to complete this topic RSV Immunization Patients Un donis 20 months Aged Out No longer eligible b ased on patient's age to complete this topic Varicella Vaccines Aged Out No longer eligible based on patient's age to complete this topic Insurance [facility] PUBLIC PLANS Care Teams Prefabricated Houses Trimmer Relationship Specialty Start Date End Date Orville Reeder MD [address] [place] [address] PCP - General Family Medicine 04/12/24
--- NOTE | 2024-07-24 14:57 | A.OFFPC_ITS ---
Vital Signs 07/24/24 14:59 Height 6 ft Weight 246 lb 2 oz BMI 33.4 BP 140/70 H Blood Pressure Location Lt brachial Position Sitting Respiration 12 Pulse 114 H Pulse Source Pulse Oximeter Temp 98.7 F Temp Source Oral Pulse Oximetry (%) 98 Oxygen Delivery Method Room Air Intake Visit Reasons: fu right foot issues /ultrasound Intake Note: u/s review Allergies No Known Allergies Allergy (Verified 07/24/24 14:58) Tobacco use date assessed: 06/22/24 Dental Screening Dental Screen Date: 06/22/24 HPI fu right foot issues /ultrasound HPI Details 44 y/o male presents to f/u uncontrolled diabetes. Had increased Lantus and added Mounjaro. Had not been able to get Mounjaro. A1c still above 9% today. Had referred him to Podiatry for cellulitis of R foot. Had continued his bactrim. Blood pressure today 140/70, 114p. He is on lisinopril 20mg daily. Patient presents for preoperative clearance prior to Procedure: Date:? Surgeon: Anesthesia: Cardiac Hx: Pulmonary Hx: Prior Surgical Complications: None Prior Anesthesia Complications: None Coag issues: None Functional [place]: HPI Comments History of Present Illness Details Documentation assistance for Orville Reeder MD, was provided by Kenny Cobb,? Safety Risk Lead on 07/24/2024 at 3:04 PM EST. Yang, Dr. Reeder, have read, observed, and verified documentation. ?? [facility] Medical History (Updated 07/24/24 @ 15:19 by Kenny Cobb) Cellulitis of right foot Renal failure Left lower quadrant abdominal tenderness Hyperlipidemia Diabetes type 2, controlled Surgical History No pertinent past surgical history Family History Mother No problems noted. Father No problems noted. Social History Housing: Apartment Alcohol intake: current Alcohol intake frequency: holidays/special occasions only Patient Tobacco Use Status: Never used Tobacco e-Cigarette/Vaping Use: Never Used Second Hand Smoke Exposure: No Current occupational status: unemployed Cognitive needs: No Hearing needs: No Vision needs: No Questionnaire Thrive Questionnaire Date Thrive assessed: 06/21/24 I am a: Patient What is your living situation today?: I choose not to answer this question Within the past 12 months, did the food you bought not last and you didn't have the money to get more?: I choose not to answer this question Within the past 12 months, did you worry whether your food would run out before you got money to buy more?: I choose not to answer this question Do you have trouble paying for medicines?: No Do you have trouble getting transportation to medical appointments?: I choose not to answer this question Do you have trouble paying your heating and electricity bill?: I choose not to answer this question Do you have trouble taking care of your child, family member or friend?: I choose not to answer this question Do you have trouble with day-to-day activities such as bathing, preparing meals, shopping, managing finances, etc.?: I choose not to answer this question Are you currently unemployed and looking for a job?: I choose not to answer this question Are you interested in more education?: I choose not to answer this question Please select the resources that you would like help with: None Currently or been in a relationship where the following occur: I choose not to answer THRIVE Score: 0 MYESHA-7 AMB Questionnaire MYESHA-7 Date MYESHA - 7 assessed: 11/07/23 Source: Developed by Drs. Rafi Arcos, Whit Foley, Julián Hart and colleagues, with an educational saqib from [employer]. Review of Systems Const Denies chills, Denies fatigue, Denies fever(s), Denies headache(s) and Denies weakness ENT Denies dizziness and Denies headache(s) Card Denies dyspnea Resp Denies cough, Denies dyspnea, Denies wheezing and Denies other (shortness of breath) Musc Denies numbness and Denies tingling Neuro Denies dizziness, Denies headache(s), Denies numbness, Denies tingling and Denies weakness Psych Denies anxiety and Denies depression Endo Denies fatigue Aller/Immun Denies wheezing Physical exam (Primary Care) Vital Signs: Last Vital Signs Temp 98.7 F 07/24/24 14:59 Pulse 114 H 07/24/24 14:59 Resp 12 07/24/24 14:59 BP 140/70 H 07/24/24 14:59 Pulse Ox 98 07/24/24 14:59 Oxygen Delivery Method Room Air 07/24/24 14:59 BMI result Body Mass Index 33.4 Tobacco/Smoking Status: Tobacco use Status Tobacco use date assessed 06/22/24 07/24/24 15:03 Patient Tobacco Use Status Never used Tobacco 07/24/24 15:03 e-Cigarette/Vaping Use Never Used 07/24/24 15:03 Thrive Assessment: Date of Thrive Assessment Date Thrive assessed 06/21/24 07/24/24 15:03 Currently or been in a relationship where the following occur: I choose not to answer Const General: well developed; No acute distress Nutritional Appearance: well nourished Orientation/consciousness: patient oriented x3 HENMT Head: Yes normocephalic and Yes atraumatic Eyes General: appearance normal, both eyes and all related structures Pupils: Equal, round and reactive pupils present EOM: EOMs intact bilaterally Resp Effort & Inspection: normal respiratory effort Neuro General: patient oriented x3 and gait normal Cranial nerves: Yes Equal, round and reactive pupils present Psych Affect: normal affect Coding Level of Care Code Est Pt Level 4 (47135) Diagnoses Uncontrolled diabetes mellitus with hyperglycemia E11.65 Cellulitis of right foot L03.115 Pre-operative clearance Z01.818 Essential hypertension I10 Assessment & Plan Assessment & Plan (1) Uncontrolled diabetes mellitus with hyperglycemia: Code(s): E11.65 - Type 2 diabetes mellitus with hyperglycemia Category: Medical Plan: A1c?was?10.1%?at?last?visit. Still?above?9%?today.??St ill?essentially?uncontrolled?diabetes.??Goal?is?less?than?7.0% Increase?Lantus?to?40?units?b.i.d. Can?increase?his?Humalog?and?check?blood?sugars. Had?tried?to?add?Mounjaro?at?last?visit?but?he?was?not?able?to?afford?this Will?add?Jardiance (2) Cellulitis of right foot: Code(s): L03.115 - Cellulitis of right lower limb Category: Medical Plan: Cellulitis?has?resolved Still?has?collapsed?arch?and?some?swelling I?referred?to?Podiatry?knee?has?an?appointment Elevate?foot?and?use?cold?packs?after?work Follow-up?with?podiatry (3) Pre-operative clearance: Code(s): Z01.818 - Encounter for other preprocedural examination Category: Medical Plan: Patient?may?need?preoperative?clearance?prior?to?a?cataract?surgery No?history?of?cardiac?disease?and?his?cardiac?exam?is?within?normal?limits No?pulmonary?disease.??Pulmonary?exam?normal No?history?of?prior?complications?with?surgery?or?anesthesia No?history?of?clotting?bleeding?disorders Good?functional?reserve Currently?patient's blood?sugar?is?significantly?elevated. Would?recommend?unless?surgery?is?urgent?in?nature?should?have?blood?suga rs?controlled?to?at?least?8.0%?or?lower?prior?to?surgery.??We?are?working?on?thi s (4) Essential hypertension: Code(s): I10 - Essential (primary) hypertension Category: Medical Plan: Blood?pressure?is?little?elevated?and?his?heart?rate?is?high Adding?metoprolol Continue?lisinopril Medications: New metoprolol succinate ER 25 mg PO DAILY 90 days 90 tabs 3RF empagliflozin 10 mg PO QAM 90 days 90 tabs 3RF Changed From insulin glargine (Lantus Solostar U-100 Insulin) 38 units (0.38 mL) subcut BID 30 days 24 mL 3RF E11.9 - Type 2 diabetes mellitus without complications To insulin glargine (Lantus Solostar U-100 Insulin) 40 units (0.4 mL) subcut BID 30 days 24 mL 11RF E11.9 - Type 2 diabetes mellitus without complications From insulin lispro (Humalog KwikPen (U-100) Insulin) 10 units (0.1 mL) subcut TID 3 months 27 mL 0RF E11.9 - Type 2 diabetes mellitus without complications To insulin lispro (Humalog KwikPen (U-100) Insulin) 12 units (0.12 mL) subcut TID 3 months 33 mL 11RF E11.9 - Type 2 diabetes mellitus without complications Refilled lisinopril 20 mg PO DAILY 90 days 90 tabs 3RF Discontinued tirzepatide (Mounjaro) for 4 weeks Discontinued Reason: Doctor's Order 2.5 mg (0.5 mL) subcut QWEEK 90 days 6.5 mL 2RF
[2024-07-24 14:59] VITALS: BP 140/70; PULSE 114; RESP 12; TEMP 37.1; O2SAT 98; BMI 33.4
== END 2024-07-24 15:45 | disposition home or self-care (01) ==
PROVIDERS: PCP Family Medicine; Visit Provider Family Medicine
DX: E11.65 Type 2 diabetes mellitus with hyperglycemia (principal); L03.115 Cellulitis of right lower limb; Z01.818 Encounter for other preprocedural examination; I10 Essential (primary) hypertension

== ENCOUNTER → 2024-07-24 14:48 | Outpatient (BNVA) | payer OTHER, SELFPAY | PROVIDERS: PCP Family Medicine; Visit Provider Family Medicine | DX: Z01.818 Encounter for other preprocedural examination (principal); E11.65 Type 2 diabetes mellitus with hyperglycemia; I10 Essential (primary) hypertension; L03.115 Cellulitis of right lower limb | CPT/HCPCS: 83036; 99212 ==

== ENCOUNTER 2024-09-10 14:07 | Outpatient (AMB) | payer OTHER, SELFPAY ==
--- NOTE | 2024-09-10 14:22 | A.OFFPC_ITS ---
Vital Signs 09/10/24 14:26 Height 6 ft Weight 121 lb 4 oz BMI 16.4 BP 126/70 Blood Pressure Location Lt brachial Position Sitting Respiration 14 Pulse 96 Pulse Source Pulse Oximeter Temp 99.8 F Temp Source Oral Pulse Oximetry (%) 99 Oxygen Delivery Method Room Air Intake Visit Reasons: f/u diabetes, chronic conditions Intake Note: patient is scheduled to follow up for dm Tabulating Machine Mechanic Required: No Allergies No Known Allergies Allergy (Verified 09/10/24 14:24) Medication List - Last Reconciled 09/10/24 by Orville Reeder MD aspirin 81 mg PO DAILY blood sugar diagnostic (FreeStyle Lite Strips) DX: E11.9, test blood sugar 3 times a day AND PRN blood-glucose meter (FreeStyle Lite Meter kit) DX: E11.9, test blood sugar 4 times a day, duration 999 days empagliflozin 10 mg PO QAM 90 days flash glucose scanning reader ([employer]Style Ariana 2 Ralph) To continuosly monitor glucose, As directed, 999 days flash glucose sensor (FreeStyle Ariana 2 Sensor kit) To continuosly monitor glucose, change every 14 days, As directed, 28 days insulin glargine (Lantus Solostar U-100 Insulin) 40 units (0.4 mL) subcut BID 30 days insulin lispro (Humalog KwikPen (U-100) Insulin) 12 units (0.12 mL) subcut TID 3 months insulin syringe-needle U-100 As directed lancets (FreeStyle Lancets) As directed lisinopril 20 mg PO DAILY 90 days meloxicam 15 mg PO DAILY metoprolol succinate ER 25 mg PO DAILY 90 days pen needle, diabetic (BD Ultra-Fine Mini Pen Needle) DX: E11.9, to treat blood sugar 5 times a day, 90 days Tobacco use date assessed: 06/22/24 Dental Screening Dental Screen Date: 06/22/24 HPI f/u diabetes, chronic conditions HPI Details 44 y/o male presents to f/u diabetes, HT N, chronic conditions. Last A1c 07/24/24 above 9%. Had increased his insulin and added empagliflozin. A1c today 8.6%. He notes he has recorded blood sugars in the 90s. Will also ensure he has seen the police chief deputy as he has a significantly collapsed arch and recent superficial infection. Infection seems to have resolved after 2 rounds of antibiotics. Imaging did not show any evidence of osteomyelitis. Blood pressure today 126/70, 96p. He is on lisinopril 20mg, metoprolol 25mg daily. He is unsure if he is taking his metoprolol or not. [facility] Medical History (Updated 09/10/24 @ 14:49 by Kenny Cobb) Cellulitis of right foot Renal failure Left lower quadrant abdominal tenderness Hyperlipidemia Diabetes type 2, controlled Surgical History No pertinent past surgical history Family History Mother No problems noted. Father No problems noted. Social History Housing: Apartment Alcohol intake: current Alcohol intake frequency: holidays/special occasions only Patient Tobacco Use Status: Never used Tobacco e-Cigarette/Vaping Use: Never Used Second Hand Smoke Exposure: No Current occupational status: unemployed Cognitive needs: No Hearing needs: No Vision needs: No Questionnaire Thrive Questionnaire Date Thrive assessed: 06/21/24 I am a: Patient What is your living situation today?: I choose not to answer this question Within the past 12 months, did the food you bought not last and you didn't have the money to get more?: I choose not to answer this question Within the past 12 months, did you worry whether your food would run out before you got money to buy more?: I choose not to answer this question Do you have trouble paying for medicines?: No Do you have trouble getting transportation to medical appointments?: I choose not to answer this question Do you have trouble paying your heating and electricity bill?: I choose not to answer this question Do you have trouble taking care of your child, family member or friend?: I choose not to answer this question Do you have trouble with day-to-day activities such as bathing, preparing meals, shopping, managing finances, etc.?: I choose not to answer this question Are you currently unemployed and looking for a job?: I choose not to answer this question Are you interested in more education?: I choose not to answer this question Please select the resources that you would like help with: None Currently or been in a relationship where the following occur: I choose not to answer THRIVE Score: 0 MYESHA-7 AMB Questionnaire MYESHA-7 Date MYESHA - 7 assessed: 11/07/23 Source: Developed by Drs. Rafi Arcos, Whit Foley, Julián Hart and colleagues, with an educational saqib from [employer]. Review of Systems Const Denies chills, Denies fatigue, Denies fever(s), Denies headache(s) and Denies weakness ENT Denies dizziness and Denies headache(s) Card Denies dyspnea Resp Denies cough, Denies dyspnea, Denies wheezing and Denies other (shortness of breath) Musc Denies numbness and Denies tingling Neuro Denies dizziness, Denies headache(s), Denies numbness, Denies tingling and Denies weakness Psych Denies anxiety and Denies depression Endo Denies fatigue Aller/Immun Denies wheezing Physical exam (Primary Care) Vital Signs: Last Vital Signs Temp 99.8 F 09/10/24 14:26 Pulse 96 09/10/24 14:26 Resp 14 09/10/24 14:26 BP 126/70 09/10/24 14:26 Pulse Ox 99 09/10/24 14:26 Oxygen Delivery Method Room Air 09/10/24 14:26 BMI result Body Mass Index 16.4 Tobacco/Smoking Status: Tobacco use Status Tobacco use date assessed 06/22/24 09/10/24 14:24 Patient Tobacco Use Status Never used Tobacco 09/10/24 14:24 e-Cigarette/Vaping Use Never Used 09/10/24 14:24 Thrive Assessment: Date of Thrive Assessment Date Thrive assessed 06/21/24 09/10/24 14:24 Currently or been in a relationship where the following occur: I choose not to answer Const General: well developed; No acute distress Nutritional Appearance: well nourished Orientation/consciousness: patient oriented x3 HENMT Head: Yes normocephalic and Yes atraumatic Eyes General: appearance normal, both eyes and all related structures Pupils: Equal, round and reactive pupils present EOM: EOMs intact bilaterally Resp Effort & Inspection: normal respiratory effort Neuro General: patient oriented x3 and gait normal Cranial nerves: Yes Equal, round and reactive pupils present Psych Affect: normal affect Coding Level of Care Code Est Pt Level 4 (80161) Diagnoses Essential hypertension I10 Uncontrolled diabetes mellitus with hyperglycemia E11.65 Collapsed arches M21.40 Screening for colon cancer Z12.11 Assessment & Plan Assessment & Plan (1) Essential hypertension: Code(s): I10 - Essential (primary) hypertension Category: Medical Plan: Blood?pressure?now?well?controlled?on?lisinopril?and?metoprolol Continue?current?medication?regimen Goal?is?less?than?140/90 (2) Uncontrolled diabetes mellitus with hyperglycemia: Code(s): E11.65 - Type 2 diabetes mellitus with hyperglycemia Category: Medical Plan: A1c?is?gradually?improving?and?now?at?8.6%?after?increasing?Lantus?at?last?visit ?a?month?ago. Was?unable?to?get?Jardiance. He?will?continue?Lantus?as?prescribed, 40?units?b.i.d. He?will?continue Mounjaro?which?he?is?paying?for?on?pocket He?is?taking Lispro?3?times?a?day?with?meals and?administering?10?units?at?each?meal. He?will?increase?his?breakf ast?and?lunch?to?12?units each. Will?follow- up?in?a?month?as?we?are?hoping?to?get?A1c?lower?in?order?to?clear?him?for?eye?anderson rgery. (3) Collapsed arches: Code(s): M21.40 - Flat foot [pes planus] (acquired), unspecified foot Category: Medical Plan: Now?in?a?boot?and?followed?by?Podiatry Continue?boot?until?November?as?recommended?and?follow-up?with?podiatry. (4) Screening for colon cancer: Code(s): Z12.11 - Encounter for screening for malignant neoplasm of colon Category: Medical Plan: Referred?to?Gastroenterology Orders: Referrals Gastroenterology Referral Z12.11 - Encounter for screening for malignant neoplasm of colon Medications: Refilled tirzepatide (Mounjaro) for 4 weeks 2.5 mg (0.5 mL) subcut QWEEK 6.5 mL 2RF 90 days Discontinued empagliflozin Discontinued Reason: Doctor's Order 10 mg PO QAM 90 days 90 tabs 3RF
[2024-09-10 14:26] VITALS: BP 126/70; PULSE 96; RESP 14; TEMP 37.7; O2SAT 99; BMI 16.4
--- OUTSIDE RECORDS SUMMARY | 2024-09-10 15:36 | XMS_ITS | Clinical Summary ---
Author Organization [facility] Address [address] [place] [address] Phone Care Team Providers Care Store Manager Name Role Phone Orville Reeder MD Primary Care Provider [phone] Allergies No known active allergies Medications insulin glargine (LANTUS) 100 unit/mL injection Inject 40 Units under the skin 2 (two) times a day. Active Medical History Medical History Date Comments Diabetes mellitus (CMS/HCC) Hypertension Social History Tobacco Use Types Packs/Day [...] patient's age to complete this topic Meningococcal B Vacine Aged Out No lo nger eligible based on patient's age to complete this topic RSV Immunization Patients Un donis 20 months Aged Out No longer eligible b ased on patient's age to complete this topic Varicella Vaccines Aged Out No longer eligible based on patient's age to complete this topic Insurance [facility] PUBLIC PLANS Care Teams Store Manager Relationship Specialty Start Date End Date Orville Reeder MD [address] [place] [address] PCP - General Family Medicine 04/12/24
== END 2024-09-10 14:51 | disposition home or self-care (01) ==
LOC: HO.HMCFM 14:08
PROVIDERS: PCP Family Medicine; Visit Provider Family Medicine
DX: I10 Essential (primary) hypertension (principal); E11.65 Type 2 diabetes mellitus with hyperglycemia; M21.40 Flat foot [pes planus] (acquired), unspecified foot; Z12.11 Encounter for screening for malignant neoplasm of colon

== ENCOUNTER → 2024-09-10 14:07 | Outpatient (BNVA) | payer OTHER, SELFPAY | PROVIDERS: PCP Family Medicine; Visit Provider Family Medicine | DX: I10 Essential (primary) hypertension (principal); M21.40 Flat foot [pes planus] (acquired), unspecified foot; E11.65 Type 2 diabetes mellitus with hyperglycemia | CPT/HCPCS: 83036; 99212 ==

== ENCOUNTER 2024-09-12 12:21 | Outpatient (AMB) | payer OTHER, SELFPAY ==
--- OUTSIDE RECORDS SUMMARY | 2024-09-12 12:23 | XMS_ITS | Clinical Summary ---
Author Organization [facility] Address [address] [place] [address] Phone Care Team Providers Care Newborn Photographer Name Role Phone Orville Reeder MD Primary Care Provider [phone] Allergies No known active allergies Medications insulin glargine (LANTUS) 100 unit/mL injection Inject 40 Units under the skin 2 (two) times a day. Active Medical History Medical History Date Comments Diabetes mellitus (CMS/[facility]) Hypertension Social History Tobacco Use [...] patient's age to complete this topic Insurance [facility] PUBLIC PLANS Care Teams Newborn Photographer Relationship Specialty Start Date End Date Orville Reeder MD [address] [place] [address] PCP - General Family Medicine 04/12/24
[2024-09-12 12:25] VITALS: BP 136/80; PULSE 93; TEMP 36.8; O2SAT 98
--- NOTE | 2024-09-12 12:25 | AM.OFFWIN_ITS ---
Intake Vital Signs 09/12/24 12:25 Height 6 ft BP 136/80 Blood Pressure Location Lt brachial Position Sitting Pulse 93 Pulse Source Pulse Oximeter Temp 98.2 F Temp Source Oral Pulse Oximetry (%) 98 Oxygen Delivery Method Room Air Intake Visit Reasons: EP-Nose pain (inside) Patient Tobacco Use Status: Never used Tobacco Allergies No Known Allergies Allergy (Verified 09/12/24 12:43) Medication List - Last Reconciled 09/12/24 by Aneta Maynard [facility]- aspirin 81 mg PO DAILY blood sugar diagnostic (FreeStyle Lite Strips) DX: E11.9, test blood sugar 3 times a day AND PRN blood-glucose meter (FreeStyle Lite Meter kit) DX: E11.9, test blood sugar 4 times a day, duration 999 days flash glucose scanning reader (FreeStyle Ariana 2 Marana) To continuosly monitor glucose, As directed, 999 days flash glucose sensor (FreeStyle Ariana 2 Sensor kit) To continuosly monitor glucose, change every 14 days, As directed, 28 days insulin glargine (Lantus Solostar U-100 Insulin) 40 units (0.4 mL) subcut BID 30 days insulin lispro (Humalog KwikPen (U-100) Insulin) 12 units (0.12 mL) subcut TID 3 months insulin syringe-needle U-100 As directed lancets (FreeStyle Lancets) As directed lisinopril 20 mg PO DAILY 90 days meloxicam 15 mg PO DAILY metoprolol succinate ER 25 mg PO DAILY 90 days pen needle, diabetic (BD Ultra-Fine Mini Pen Needle) DX: E11.9, to treat blood sugar 5 times a day, 90 days tirzepatide (Mounjaro) 2.5 mg (0.5 mL) subcut QWEEK 90 days Do you need a note to return to daycare/school/sports/work: No HPI HPI Comments History of Present Illness Details History - The patient is a 44-year-old male pres enting with nasal pain. - Pain began approximately 5 days ago an d is localized to the right side of the nose. - He recently cut nasal hair, possibly i nciting the issue, and noted redness in the region. - Minor bleeding was observed - The patient notes prior episodes of na gisela congestion but no use of nasal medications. Denies fever, chills, loss of sense of smell, trauma to the nose other than as listed above, sore throat. Physical Exam General: Awake, alert. No apparent distress Eyes: Sclera and conjunctiva clear bilaterally Nose: Nares patent, scabbed ulcer like area noted inside R nares, turbinates erythematous, L nares clear, turbinates erythematous, no sinus tenderness w/ palpation, no epitaxis On the bridge of his nose, the skin is pink. Tender to touch but unsure if the pain is coming from inside the nose or truly on the outside. Discussion Notes I discussed with the patient the likely diagnosis of trauma potentially caused by recent nasal hair trimming. I explained the risk of infection due to the sensitive nature of nasal tissues and advised on appropriate topical treatment. The treatment plan involves applying an antibiotic cream, emphasizing the importance of using a fingertip rather than Q-tips to apply the cream twice daily for seven days to avoid further trauma. I addressed the need for hygiene concerning any instruments used for nasal care. Follow-up was recommended if symptoms worsen or do not resolve, stressing the importance of returning if necessary. Avoidance of nasal hair trimming in the near future was also advised. Patient Instructions - Apply the antibiotic cream inside your nose and on the red area twice a day for seven days. - Make sure to use your fingertip instea d of a Q-tip to apply the cream. - Avoid trimming nasal hair until the sy mptoms improve. - Maintain hygiene with any instruments used for nasal care. - If your symptoms worsen or do not get better, come back to see us. Consent Patient was informed and verbally consented to the use of an ambient scribe for clinic note documentation during this visit. [facility] Medical History (Updated 09/10/24 @ 14:49 by Kenny Cobb) Cellulitis of right foot Diabetes type 2, controlled Hyperlipidemia Left lower quadrant abdominal tenderness Renal failure Surgical History No pertinent past surgical history Family History Mother No problems noted. Father No problems noted. Social History Housing: Apartment Alcohol intake: current Alcohol intake frequency: holidays/special occasions only Patient Tobacco Use Status: Never used Tobacco e-Cigarette/Vaping Use: Never Used Second Hand Smoke Exposure: No Current occupational status: unemployed Cognitive needs: No Hearing needs: No Vision needs: No Physical Exam Vital Signs: Last Vital Signs Temp 98.2 F 09/12/24 12:25 Pulse 93 09/12/24 12:25 BP 136/80 09/12/24 12:25 Pulse Ox 98 09/12/24 12:25 Oxygen Delivery Method Room Air 09/12/24 12:25 Assessment & Plan Assessment & Plan (1) Folliculitis nares perforans: Code(s): L73.8 - Other specified follicular disorders Plan . Medications: New mupirocin 2% 1 appl topical BID 7 days 15 grams 0RF Coding Level of Care Code Est Pt Level 3 (60270) Diagnoses Folliculitis nares perforans L73.8
== END 2024-09-12 12:52 | disposition home or self-care (01) ==
LOC: HO.HMCWIC 12:21
PROVIDERS: PCP Family Medicine; Visit Provider Nurse Practitioner Family
DX: L73.8 Other specified follicular disorders (principal)

== ENCOUNTER → 2024-09-12 12:21 | Outpatient (BNVA) | payer OTHER, SELFPAY | PROVIDERS: PCP Family Medicine; Visit Provider Nurse Practitioner Family | DX: L73.8 Other specified follicular disorders (principal) | CPT/HCPCS: 99212 ==

== ENCOUNTER 2024-09-23 09:25 | Outpatient (REF) | payer OTHER, SELFPAY ==
--- NOTE | ~2024-09-23 | XR_ITS ---
EXAMINATION: XR FOOT 3 OR MORE VIEWS RIGHT HISTORY: CHARCOT'S NEUROPATHY, RIGHT FOOT COMPARISON: There are no prior studies available for comparison. FINDINGS: Three views of the right foot are submitted. Osseous mineralization is normal. There is severe degenerative change of the tarsometatarsal joints with multiple erosions, osteophyte formation, and some subchondral cyst formation. There is lateral subluxation of the 2nd through 5th metatarsals with respect to the tarsal bones, and widening of the interspace between the 1st and 2nd metatarsal bones. These findings are compatible with Lisfranc ligament disruption. There is no fracture or dislocation. There is diffuse soft tissue swelling. XR/XR foot RT min 3V IMPRESSION: Severe degenerative changes of the tarsometatarsal joints with findings consistent with Lisfranc ligament disruption. The constellation of findings is compatible with the given history of Charcot neuropathy. Electronically signed by: Rafi Berger MD 09/24/2024 07:54 AM EDT
--- OUTSIDE RECORDS SUMMARY | 2024-09-23 10:21 | XMS_ITS | Clinical Summary ---
Author Organization [facility] Address [address] [place] [address] Phone Care Team Providers Care Contour Sander Name Role Phone Orville Reeder MD Primary Care Provider [phone] Allergies No known active allergies Medications insulin glargine (LANTUS) 100 unit/mL injection Inject 40 Units under the skin 2 (two) times a day. Active Medical History Medical History Date Comments Diabetes mellitus (CMS/HCC V24, CMS/[facility] V28) Hypertension Social History Tobacco Use Types Packs/Day [...] Vaccine (1 - 2023-2 5 season) 2024 Cholesterol Screening (Lipid Panel) 04/12/2024 Colorectal Cancer Screening: Colonoscopy 04/12/2024 Depression Screening 04/12/2024 Diabetes: Annual Urine Albumin-Creatinine Ratio (uACR) 04/12/2024 Diabetes: Blood Sugar Contro l Test (HGBA1C) 04/12/2024 HIV Screening 04/12/2024 Hepatitis C Screening 04/12/2024 Hypertension/CHF/CAD Annual BMP Blood Test 04/12/2024 Social Influencers of Health Screening 04/12/2024 Influenza Vaccine (Season Ended) 2025 03/01/20 11 Pneumococcal Vaccine: Pediat rics (0 to 5 [...] age to complete this topic Meningococcal B Vaccine Aged Out No l onger eligible based on patient's age to complete this topic RSV Immunization Patients Un donis 20 months Aged Out No longer eligible b ased on patient's age to complete this topic Varicella Vaccines Aged Out No longer eligible based on patient's age to complete this topic Insurance [facility] PLANS Care Teams Contour Sander Relationship Specialty Start Date End Date Orville Reeder MD [address] [facility] [place] [address] PCP - General Family Medicine 04/12/24
== END 2024-09-23 09:26 | disposition home or self-care (01) ==
LOC: HO.HMGCX 09:25
PROVIDERS: PCP Family Medicine; Visit Provider Podiatrist
DX: M14.671 Charcot's joint, right ankle and foot (principal)
CPT/HCPCS: 73630

== ENCOUNTER → 2024-09-23 09:33 | Outpatient (BNV) | payer OTHER, SELFPAY | PROVIDERS: PCP Family Medicine; Visit Provider Radiology Diagnostic Radiology | DX: S93.324A Dislocation of tarsometatarsal joint of right foot, initial encounter (principal); M14.671 Charcot's joint, right ankle and foot | CPT/HCPCS: 73630 ==

== ENCOUNTER 2024-09-24 10:03 | Outpatient (REF) | payer OTHER, SELFPAY ==
--- OUTSIDE RECORDS SUMMARY | 2024-09-24 11:49 | XMS_ITS | Clinical Summary ---
Author Organization [facility] Address [address] [place] [address] Phone Care Team Providers Care Termite Inspector Name Role Phone Orville Reeder MD Primary Care Provider [phone] Allergies No known active allergies Medications insulin glargine (LANTUS) 100 unit/mL injection Inject 40 Units under the skin 2 (two) times a day. Active Medical History Medical History Date Comments Diabetes mellitus (CMS/HCC V24, CMS/[facility] V28) Hypertension Social History Tobacco Use Types [...] patient's age to complete this topic Insurance [facility] PLANS Care Teams Termite Inspector Relationship Specialty Start Date End Date Orville Reeder MD [address] [place] [address] PCP - General Family Medicine 04/12/24
[2024-09-24 13:38] LABS: Anion Gap 10 (12-20); Blood Urea Nitrogen 12 mg/dL (9-16); Calcium 9.1 mg/dL (8.4-10.2); Carbon Dioxide 28 mmol/L (22-29); Chloride 103 mmol/L (96-108); Estimated Glomerular Filt Rate > 60; Glucose Random 205 mg/dL (60-115); Potassium 3.9 mmol/L (3.3-5.1); Sodium 137 mmol/L (135-145)
[2024-09-24 13:56] LABS: Appearance Urine Turbid; Color Urine Yellow; Glucose Urine UA 250 mg/dL (Negative); Leukocyte Esterase Urine Negative (Negative); Nitrite Urine Negative (Negative); PH 5.5 (5.0-9.0); Specific Gravity - Urine 1.025 (1.005-1.025); UMIC TRIGGER UA YES; Urine Blood Trace (Negative); Urine Ketones Trace mg/dL (Negative); Urine Protein Trace mg/dL (Neg-Trace)
[2024-09-24 14:02] LABS: Bacteria Urine None Seen (None Seen); Hyaline Casts Urine 0-2 /LPF (0-2); RBC Urine 0-2 /HPF (0-2); Squamous Epithelial Cell Urine 0-2 /HPF (0-2); WBC Urine 0-5 /HPF (0-5)
[2024-09-24 14:12] LABS: Creatinine Urine 248.18 mg/dL; Total Protein Urine Random 15 mg/dL (<12)
== END 2024-09-24 10:04 | disposition home or self-care (01) ==
LOC: HO.HMGCLDS 10:03
PROVIDERS: PCP Family Medicine; Visit Provider Internal Medicine Hypertension Specialist
DX: I10 Essential (primary) hypertension (principal)
CPT/HCPCS: 36415; 80048; 81001; 82570; 84156

== ENCOUNTER 2024-10-13 09:50 | Outpatient (AMB) | payer OTHER, SELFPAY ==
--- NOTE | 2024-10-13 10:09 | MHC.PC.OV ---
Vital Signs 10/13/24 10:15 Height 6 ft BP 136/64 Blood Pressure Location Rt brachial Position Sitting Respiration 16 Pulse 94 Pulse Source Pulse Oximeter Temp 97.9 F Temp Source Oral Pulse Oximetry (%) 99 Oxygen Delivery Method Room Air Intake Visit Reasons: f/u diabetes Allergies No Known Allergies Allergy (Verified 10/13/24 10:14) Medication List - Last Reconciled 10/13/24 by Orville Reeder MD aspirin 81 mg PO DAILY blood sugar diagnostic (FreeStyle Lite Strips) DX: E11.9, test blood sugar 3 times a day AND PRN blood-glucose meter (FreeStyle Lite Meter kit) DX: E11.9, test blood sugar 4 times a day, duration 999 days flash glucose scanning reader (FreeStyle Ariana 2 [place]) To continuosly monitor glucose, As directed, 999 days flash glucose sensor (FreeStyle Ariana 2 Sensor kit) To continuosly monitor glucose, change every 14 days, As directed, 28 days insulin glargine (Lantus Solostar U-100 Insulin) 40 units (0.4 mL) subcut BID 30 days insulin lispro (Humalog KwikPen (U-100) Insulin) 12 units (0.12 mL) subcut TID 3 months insulin syringe-needle U-100 As directed lancets (FreeStyle Lancets) As directed lisinopril 20 mg PO DAILY 90 days meloxicam 15 mg PO DAILY metoprolol succinate ER 25 mg PO DAILY 90 days mupirocin 2% 1 appl topical BID 7 days pen needle, diabetic (BD Ultra-Fine Mini Pen Needle) DX: E11.9, to treat blood sugar 5 times a day, 90 days tirzepatide (Mounjaro) 2.5 mg (0.5 mL) subcut QWEEK 90 days Tobacco use date assessed: 06/22/24 Dental Screening Dental Screen Date: 06/22/24 HPI f/u diabetes HPI Details 44 y/o male presents to f/u diabetes. A1c 09/10/24 8.6%. Had increased his Lispro to 12 units. Had sent a prescription for mounjaro. A1c today 10/13/24 is unchanged at 8.6%. [facility] Medical History (Updated 09/10/24 @ 14:49 by Kenny Cobb) Cellulitis of right foot Renal failure Left lower quadrant abdominal tenderness Hyperlipidemia Diabetes type 2, controlled Surgical History No pertinent past surgical history Family History Mother No problems noted. Father No problems noted. Social History Housing: Apartment Alcohol intake: current Alcohol intake frequency: holidays/special occasions only Patient Tobacco Use Status: Never used Tobacco e-Cigarette/Vaping Use: Never Used Second Hand Smoke Exposure: No Current occupational status: unemployed Cognitive needs: No Hearing needs: No Vision needs: No Questionnaire Thrive Questionnaire Date Thrive assessed: 06/21/24 I am a: Patient What is your living situation today?: I choose not to answer this question Within the past 12 months, did the food you bought not last and you didn't have the money to get more?: I choose not to answer this question Within the past 12 months, did you worry whether your food would run out before you got money to buy more?: I choose not to answer this question Do you have trouble paying for medicines?: No Do you have trouble getting transportation to medical appointments?: I choose not to answer this question Do you have trouble paying your heating and electricity bill?: I choose not to answer this question Do you have trouble taking care of your child, family member or friend?: I choose not to answer this question Do you have trouble with day-to-day activities such as bathing, preparing meals, shopping, managing finances, etc.?: I choose not to answer this question Are you currently unemployed and looking for a job?: I choose not to answer this question Are you interested in more education?: I choose not to answer this question Please select the resources that you would like help with: None Currently or been in a relationship where the following occur: I choose not to answer THRIVE Score: 0 MYESHA-7 AMB Questionnaire MYESHA-7 Date MYESHA - 7 assessed: 11/07/23 Source: Developed by Drs. Rafi Arcos, Whit Foley, Julián Hart and colleagues, with an educational saqib from [employer]. Review of Systems Const Denies chills, Denies fatigue, Denies fever(s), Denies headache(s) and Denies weakness ENT Denies dizziness and Denies headache(s) Card Denies dyspnea Resp Denies cough, Denies dyspnea, Denies wheezing and Denies other (shortness of breath) Musc Denies numbness and Denies tingling Neuro Denies dizziness, Denies headache(s), Denies numbness, Denies tingling and Denies weakness Psych Denies anxiety and Denies depression Endo Denies fatigue Aller/Immun Denies wheezing Physical exam (Primary Care) Vital Signs: Last Vital Signs Temp 97.9 F 10/13/24 10:15 Pulse 94 10/13/24 10:15 Resp 16 10/13/24 10:15 BP 136/64 10/13/24 10:15 Pulse Ox 99 10/13/24 10:15 Oxygen Delivery Method Room Air 10/13/24 10:15 Tobacco/Smoking Status: Tobacco use Status Tobacco use date assessed 06/22/24 10/13/24 10:11 Patient Tobacco Use Status Never used Tobacco 10/13/24 10:11 e-Cigarette/Vaping Use Never Used 10/13/24 10:11 Thrive Assessment: Date of Thrive Assessment Date Thrive assessed 06/21/24 10/13/24 10:11 Currently or been in a relationship where the following occur: I choose not to answer Const General: well developed; No acute distress Nutritional Appearance: well nourished Orientation/consciousness: patient oriented x3 [facility] Head: Yes normocephalic and Yes atraumatic Eyes General: appearance normal, both eyes and all related structures Pupils: Equal, round and reactive pupils present EOM: EOMs intact bilaterally Resp Effort & Inspection: normal respiratory effort Neuro General: patient oriented x3 and gait normal Cranial nerves: Yes Equal, round and reactive pupils present Psych Affect: normal affect Coding Level of Care Code Est Pt Level 3 (07097) Diagnoses Uncontrolled diabetes mellitus with hyperglycemia E11.65 Assessment & Plan Assessment & Plan (1) Uncontrolled diabetes mellitus with hyperglycemia: Code(s): E11.65 - Type 2 diabetes mellitus with hyperglycemia Category: Medical Plan: A1c?8.6%,?poor?control?and?unchanged?from?prior?Check. Goal?is?less?than?7.0%. Had?expected?ongoing?improvement. He?was?able?to?get?Mounjaro?and?I?will?increase?this?today. Will?also?increase?Lantus?from?40?units?daily?to?44?units?daily. Continue?lispro?12?units?t.i.d.?meals Will?have my?medical?graduate assistant?check?on?what?types?of meter?and?strips?were?dispensed?by?the?pharmacy.??Patient?says?they?did?not?match?though?the?due?in?his?medication?list. Needs?to?get?these?as?soon?as?possible.??He?will?try?to?drop?off?information?about?this?tomorrow as well. He?will?decrease?Lantus?to?40?units?again?if?he?is?having?low?blood?sugars?morning. Return?in?1?month?for?close?follow-up?as?he?is?trying?to?get?his?blood?sugars?under?control?for?eye?surgery.
[2024-10-13 10:15] VITALS: BP 136/64; PULSE 94; RESP 16; TEMP 36.6; O2SAT 99
== END 2024-10-13 10:53 | disposition home or self-care (01) ==
LOC: HO.HMCFM 09:51
PROVIDERS: PCP Family Medicine; Visit Provider Family Medicine
DX: E11.65 Type 2 diabetes mellitus with hyperglycemia (principal)

== ENCOUNTER → 2024-10-13 09:50 | Outpatient (BNVA) | payer OTHER, SELFPAY | PROVIDERS: PCP Family Medicine; Visit Provider Family Medicine | DX: E11.65 Type 2 diabetes mellitus with hyperglycemia (principal); Z79.4 Long term (current) use of insulin | CPT/HCPCS: 83036; 99212 ==

== ENCOUNTER 2024-10-16 13:35 | Outpatient (AMB) | payer OTHER, SELFPAY ==
[2024-10-16 13:35] VITALS: BP 136/70; PULSE 105; O2SAT 98; BMI 32.5
--- NOTE | 2024-10-16 13:35 | HO.NEPHOV ---
Vital Signs 10/16/24 13:35 Height 6 ft Weight 240 lb BMI 32.5 BP 136/70 Blood Pressure Location Lt brachial Position Sitting Pulse 105 H Pulse Source Pulse Oximeter Pulse Oximetry (%) 98 Oxygen Delivery Method Room Air Intake Visit Reasons: Follow-up/ [employer] Required: No Accompanied by: Self / Same As Patient Allergies No Known Allergies Allergy (Verified 10/16/24 13:36) Medication List - Last Reconciled 10/16/24 by Floyd Tang MD aspirin 81 mg PO DAILY blood sugar diagnostic (FreeStyle Lite Strips) DX: E11.9, test blood sugar 3 times a day AND PRN blood-glucose meter (FreeStyle Lite Meter kit) DX: E11.9, test blood sugar 4 times a day, duration 999 days flash glucose scanning reader (FreeStyle Ariana 2 [place]) To continuosly monitor glucose, As directed, 999 days flash glucose sensor (FreeStyle Ariana 2 Sensor kit) To continuosly monitor glucose, change every 14 days, As directed, 28 days insulin glargine (Lantus Solostar U-100 Insulin) 44 units (0.44 mL) subcut BID 30 days insulin lispro (Humalog KwikPen (U-100) Insulin) 12 units (0.12 mL) subcut TID 3 months insulin syringe-needle U-100 As directed lancets (FreeStyle Lancets) As directed lisinopril 20 mg PO DAILY 90 days meloxicam 15 mg PO DAILY metoprolol succinate ER 25 mg PO DAILY 90 days mupirocin 2% 1 appl topical BID 7 days pen needle, diabetic (BD Ultra-Fine Mini Pen Needle) DX: E11.9, to treat blood sugar 5 times a day, 90 days tirzepatide 5 mg (0.5 mL) subcut QWEEK 90 days HPI Comments Details: Zakia is a pleasant 41-year-old man who has a history of hypertension and diabetes mellitus. He has been on lisinopril 10 mg for more than 5 years. He does not take lisinopril on a regular basis. During a routine evaluation he underwent a renal ultrasonogram/Doppler of renal arteries. Report was read as mild increase in velocity in the renal arteries and possible renal artery stenosis. However overall blood pressure has been well controlled. No significant elevation in blood pressure. In spite of skipping his lisinopril blood pressure has been in the acceptable range. He has no history of dyslipidemia. No history of smoking. No family history of arthrosclerosis. He has no other predisposing factors besides diabetes mellitus. Has a history of snoring at night. He has not undergone any sleep evaluation. His BMI is elevated at 32. He has lost about 10 lb based on the weight is recorded in the chart. 10/16/24 Now with charcots joint- right foot A1C is verenice to 8% HAs Diab retinopathy [facility] Medical History (Updated 09/10/24 @ 14:49 by Kenny Cobb) Cellulitis of right foot Renal failure Left lower quadrant abdominal tenderness Hyperlipidemia Diabetes type 2, controlled Surgical History No pertinent past surgical history Family History Mother No problems noted. Father No problems noted. Social History Housing: Apartment Alcohol intake: current Alcohol intake frequency: holidays/special occasions only Patient Tobacco Use Status: Never used Tobacco e-Cigarette/Vaping Use: Never Used Second Hand Smoke Exposure: No Current occupational status: unemployed Cognitive needs: No Hearing needs: No Vision needs: No Physical Exam Vital Signs: Last Vital Signs Pulse 105 H 10/16/24 13:35 BP 136/70 10/16/24 13:35 Pulse Ox 98 10/16/24 13:35 Oxygen Delivery Method Room Air 10/16/24 13:35 BMI result Body Mass Index 32.5 Comfortable Neck supple no JVD. Lungs entry equal no rales. Heart S1-S2 heard no gallop or rub. Abdomen soft nontender. Neuro alert awake oriented. No asterixis. Extremities no edema. Results Reviewed Nephrology Results: Sodium 137 mmol/L (135-145) 09/24/24 Potassium 3.9 mmol/L (3.3-5.1) 09/24/24 Chloride 103 mmol/L (96-108) 09/24/24 Carbon Dioxide 28 mmol/L (22-29) 09/24/24 BUN 12 mg/dL (9-16) 09/24/24 Creatinine 0.90 mg/dL (0.5-1.4) 09/24/24 Calcium 9.1 mg/dL (8.4-10.2) 09/24/24 Urine Protein Trace mg/dL (Neg-Trace) 09/24/24 Urine Creatinine 248.18 mg/dL 09/24/24 Assessment & Plan Assessment & Plan (1) Diabetes type 2, controlled: Code(s): E11.9 - Type 2 diabetes mellitus without complications Category: Medical (2) Essential hypertension: Code(s): I10 - Essential (primary) hypertension Category: Medical (3) HTN (hypertension): Code(s): I10 - Essential (primary) hypertension Category: Medical Plan Jacob has mild hypertension which seems to be well controlled. Obesity and possible obstructive sleep apnea could be a contributing factor. I do not believe he has significant renal artery stenosis. stay on low-sodium diet. I have discussed importance of weight loss. Should undergo a sleep evaluation for possible obstructive sleep apnea and and this needs to be corrected if it is present. For now I have encouraged him to stay on lisinopril. We will monitor blood pressure periodically and adjust the dose as needed. Orders: Orders Basic Metabolic Panel 6 Months I10 - Essential (primary) hypertension Coding Level of Care Code Est Pt Level 4 (80584) Diagnoses Diabetes type 2, controlled E11.9 Essential hypertension I10 HTN (hypertension) I10
--- OUTSIDE RECORDS SUMMARY | 2024-10-16 13:39 | XMS_ITS | Clinical Summary ---
Author Organization [facility] Address [address] [place] [address] Phone Care Team Providers Care Spanish Interpreter Name Role Phone Orville Reeder MD Primary Care Provider [phone] Allergies No known active allergies Medications insulin glargine (LANTUS) 100 unit/mL injection Inject 40 Units under the skin 2 (two) times a day. Active Medical History Medical History Date Comments Diabetes mellitus (CMS/HCC V24, CMS/[facility] V28) Hypertension Social History Tobacco Use [...] patient's age to complete this topic Insurance [employer] Care Teams Spanish Interpreter Relationship Specialty Start Date End Date Orville Reeder MD [address] [place] [address] PCP - General Family Medicine 04/12/24
== END 2024-10-16 13:47 | disposition home or self-care (01) ==
LOC: HO.HKA 13:36
PROVIDERS: PCP Family Medicine; Visit Provider Internal Medicine Hypertension Specialist
DX: E11.9 Type 2 diabetes mellitus without complications (principal); I10 Essential (primary) hypertension
CPT/HCPCS: 99214

== ENCOUNTER → 2024-10-16 13:35 | Outpatient (BNVA) | payer OTHER, SELFPAY | PROVIDERS: PCP Family Medicine; Visit Provider Internal Medicine Hypertension Specialist | DX: I10 Essential (primary) hypertension (principal); E11.9 Type 2 diabetes mellitus without complications; Z79.899 Other long term (current) drug therapy | CPT/HCPCS: 99212 ==